=== PATIENT | female | born 1975 | race Caucasian/White ===

== ENCOUNTER → 2016-08-12 | Outpatient (CLI) | payer MEDICAID | END | disposition disaster alternative care site (69) | LOC: GBCOE 08-05 07:00 | DX: N60.01 Solitary cyst of right breast (principal); N60.02 Solitary cyst of left breast | CPT/HCPCS: G0204; G0279 ==

== ENCOUNTER → 2016-08-19 | Outpatient (CLI) | payer MEDICAID | END | disposition disaster alternative care site (69) | LOC: GRAD 09:57 | DX: N60.12 Diffuse cystic mastopathy of left breast (principal); N60.11 Diffuse cystic mastopathy of right breast; N63 Unspecified lump in breast ==